=== PATIENT | male | born 1990 | race African-American/Black ===

== ENCOUNTER 2018-11-26 10:43 | Emergency (ER) | payer OTHER ==
[~2018-11-26] VITALS: Ht 185.4 cm; Wt 91.2 kg
[2018-11-26] MEDS ORDERED: VALA10005 PO (11:36)
--- NOTE | 2018-11-26 11:40 | PHYS DOC ---
Past History Past Medical History: No Pertinent History Past Surgical History: No Surgical History Alcohol Use: Occasionally Drug Use: None Adult General Chief Complaint Chief Complaint: OTHER COMPLAINTS HPI HPI 28-year-old male presents with rash on his upper lip. The patient just noticed this came up yesterday. He was concerned about this because he left his dog lick his face. He has not had the dog for very long. The rash seemed to pop up in the area with the dog licked him. She has not had a history of cold sores in the past. He denies fever or chills. Secondarily, the patient had a rash on his right flank that showed up around the same time the patient was exposed to a person with shingles. The patient's boss wanted him to come get checked out just in case. The rash on his side has resolved. He does not have any pain. The patient had chickenpox in the past and is fully vaccinated. Review of Systems Review of Systems Constitutional: Denies fever or chills [] Eyes: Denies change in visual acuity, redness, or eye pain [] HENT: Denies nasal congestion or sore throat [] Respiratory: Denies cough or shortness of breath [] Cardiovascular: No additional information not addressed in HPI [] GI: Denies abdominal pain, nausea, vomiting, bloody stools or diarrhea [] : Denies dysuria or hematuria [] Musculoskeletal: Denies back pain or joint pain [] Integument: Lip rash[] Neurologic: Denies headache, focal weakness or sensory changes [] Endocrine: Denies polyuria or polydipsia [] All other systems were reviewed and found to be within normal limits, except as documented in this note. Allergies Allergies Allergies Coded Allergies Type Severity Reaction Last Updated Verified No Known Drug Allergies 11/26/18 No Physical Exam Physical Exam Constitutional: Well developed, well nourished, no acute distress, non-toxic appearance. [] HENT: Normocephalic, atraumatic, bilateral external ears normal, oropharynx moist, no oral exudates, nose normal. [] Eyes: PERRLA, EOMI, conjunctiva normal, no discharge. [] Neck: Normal range of motion, no tenderness, supple, no stridor. [] Cardiovascular:Heart rate regular rhythm, no murmur [] Lungs & Thorax: Bilateral breath sounds clear to auscultation [] Abdomen: Bowel sounds normal, soft, no tenderness, no masses, no pulsatile masses. [] Skin: 5mm vesicular rash on right upper lip, consistent with HSV 1. [] Back: No tenderness, no CVA tenderness. [] Extremities: No tenderness, no cyanosis, no clubbing, ROM intact, no edema. [] Neurologic: Alert and oriented X 3, normal motor function, normal sensory function, no focal deficits noted. [] Psychologic: Affect normal, judgement normal, mood normal. [] Current Patient Data Vital Signs Vital Signs Date Time Temp Pulse Resp B/P (MAP) Pulse Ox O2 Delivery O2 Flow Rate FiO2 11/26/18 10:45 98.3 64 18 98 Room Air EKG EKG [] Radiology/Procedures Radiology/Procedures [] Course & Med Decision Making Course & Med Decision Making Pertinent Labs and Imaging studies reviewed. (See chart for details) Believe the patient likely has herpes simplex outbreak and I will treat him with Valtrex. It is also possible that he is allergic to the dog saliva. I told him the only way to find out for sure is to have allergy testing. He is stable for discharge at this time. [] Dragon Disclaimer Dragon Disclaimer This electronic medical record was generated, in whole or in part, using a voice recognition dictation system. Departure Departure: Impression: Primary Impression: Herpes simplex Disposition: 01 HOME, SELF-CARE Condition: STABLE Referrals: PCP,NO (PCP) Patient Instructions: Cold Sore, [id number] Scripts Valacyclovir Hcl (VALTREX) 1,000 Mg Tablet 2 TAB PO BID PRN for RASH for 1 Day, #20 TAB Take 2 tabs now and 2 tabs in 12 hours. Prov: MISTY KING DO 11/26/18 MISTY KING DO Nov 26, 2018 11:40
[2018-11-26 11:45] VITALS: BP 104/72
== END 2018-11-26 11:45 | disposition home or self-care (01) ==
LOC: ER 10:43
DX: B00.9 Herpesviral infection, unspecified (principal)
CPT/HCPCS: 99283

== ENCOUNTER 2018-12-27 21:05 | Emergency (ER) | payer OTHER ==
[~2018-12-27] VITALS: Ht 185.4 cm; Wt 91.2 kg
[~2018-12-27 21:05] MED LIST: VALA10005 PO
[2018-12-27 21:12] VITALS: BP 143/84
[2018-12-27] MEDS ORDERED: DICL50TA4 PO (22:15)
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
--- NOTE | 2018-12-27 23:41 | RAD ---
Three-view left knee radiographs 12/27/2018 CLINICAL HISTORY: Injury to the left knee. AP, oblique and 2 lateral digital radiographs of the left knee were obtained. No fracture or dislocation of the left knee is seen. Mild enthesophyte formation is seen involving the superior aspect of the anterior left patella. IMPRESSION: No fracture or dislocation of the left knee is seen. Electronically signed by: Peter Maldonado MD (12/27/2018 11:37 PM) [facility]
== END 2018-12-27 22:35 | disposition home or self-care (01) ==
LOC: ER 21:09
DX: S80.02XA Contusion of left knee, initial encounter (principal); V18.4XXA Pedal cycle driver injured in noncollision transport accident in traffic accident, initial encounter; Y93.I9 Activity, other involving external motion; Y92.488 Other paved roadways as the place of occurrence of the external cause; Y99.8 Other external cause status
CPT/HCPCS: 29505; 73562; 99284

== ENCOUNTER 2019-03-10 18:57 | Emergency (ER) | payer OTHER ==
[~2019-03-10] VITALS: Ht 180.3 cm; Wt 90.7 kg
[~2019-03-10 18:57] MED LIST changes: +DICL50TA4 PO
[2019-03-10 19:00] VITALS: BP 123/60
[2019-03-10] MEDS ORDERED: SULF1TAB24 PO (19:22)
[2019-03-10] MEDS ORDERED: MELO7.5T29 PO (19:22)
--- NOTE | 2019-03-10 19:22 | PHYS DOC ---
Past History Past Medical History: No Pertinent History Past Surgical History: No Surgical History Alcohol Use: Occasionally Drug Use: None Adult General Chief Complaint Chief Complaint: SKIN PROBLEM HPI HPI Patient is a 28-year-old male presents with a lump on his scalp. Patient shaves his head. He has noticed the lump approximately 2 weeks ago and has been getting worse over time. He's had previous ones like this that have healed on their own. No recent travel. No trauma. No drainage. No fever. It is tender to touch. No home medicine has been taken. He has not been seen at sick all. His vaccinations are up-to-date. Symptoms are mild to moderate in intensity. [] Review of Systems Review of Systems Constitutional: Denies fever or chills [] Eyes: Denies change in visual acuity, redness, or eye pain [] HENT: Denies nasal congestion or sore throat [] Respiratory: Denies cough or shortness of breath [] Cardiovascular: No chest pain or palpitations[] GI: Denies abdominal pain, nausea, vomiting, bloody stools or diarrhea [] : Denies dysuria or hematuria [] Musculoskeletal: Denies back pain or joint pain [] Integument: Denies rash, see history of present illness[] Neurologic: Denies headache, focal weakness or sensory changes [] Endocrine: Denies polyuria or polydipsia [] All other systems were reviewed and found to be within normal limits, except as documented in this note. Allergies Allergies Allergies Coded Allergies Type Severity Reaction Last Updated Verified No Known Drug Allergies 11/26/18 No Physical Exam Physical Exam Constitutional: Well developed, well nourished, no acute distress, non-toxic appearance. [] HENT: Normocephalic, atraumatic, bilateral external ears normal, oropharynx moist, no oral exudates, nose normal. [] Eyes: PERRLA, EOMI, conjunctiva normal, no discharge. [] Neck: Normal range of motion, no tenderness, supple, no stridor. [] Cardiovascular:Heart rate regular rhythm, no murmur [] Lungs & Thorax: Bilateral breath sounds clear to auscultation [] Abdomen: Not examined. [] Skin: Warm, dry, 1.5 cm diameter nodule right temporal parietal region. Fluctuant nature. Minimal erythema. No drainage. No cervical lymphadenopathy present.[] Back: No tenderness, no CVA tenderness. [] Extremities: No tenderness, no cyanosis, no clubbing, ROM intact, no edema. [] Neurologic: Alert and oriented X 3, normal motor function, normal sensory function, no focal deficits noted. [] Psychologic: Affect normal, judgement normal, mood normal. [] Current Patient Data Vital Signs Vital Signs Date Time Temp Pulse Resp B/P (MAP) Pulse Ox O2 Delivery O2 Flow Rate FiO2 03/10/19 19:00 98.1 71 20 97 Room Air EKG EKG [] Radiology/Procedures Radiology/Procedures [] Course & Med Decision Making Course & Med Decision Making Pertinent Labs and Imaging studies reviewed. (See chart for details) Medical decision making: This appears to be cutaneous abscess. Will start patient on oral outpatient antibiotics and have him follow-up with sick call. No evidence of systemic toxicity. No staph scalded skin syndrome, no toxic epidermal necrolysis, no Orta-Seb syndrome.[] Dragon Disclaimer Dragon Disclaimer This electronic medical record was generated, in whole or in part, using a voice recognition dictation system. Departure Departure: Impression: Primary Impression: Cutaneous abscess of head [any part, except face] Disposition: HOME, SELF-CARE Condition: IMPROVED Referrals: PCP,NO (PCP) Patient Instructions: Abscess Additional Instructions: Keep the area clean and dry. No shaving the scalp for 2 weeks. Follow-up with your regular doctor/sick call in 2 days for a wound check. Take the anabiotic's as prescribed. Return to the ER if worsening pain, fever of more than 101�, or any other concerns. Scripts Meloxicam (MELOXICAM) 7.5 Mg Tablet 7.5 MG PO DAILY for PAIN, #20 TAB Prov: MARCELINA HULL DO 03/10/19 Sulfamethoxazole/Trimethoprim (BACTRIM DS TABLET) 1 Each Tablet 2 TAB PO BID for cutaneous abscess, #40 TAB Prov: MARCELINA HULL DO 03/10/19 Incision and Drainage Indication: Right scalp nodule Procedure: The patient was positioned appropriately and the skin over the incision site was prepped with ChloraPrep. A needle aspiration was then made over the nodule and small amount of purulent material was expressed. The patient�s tetanus status confirmed. The patient tolerated the procedure well Complications: None MARCELINA HULL DO Mar 10, 2019 19:22
== END 2019-03-10 19:24 | disposition home or self-care (01) ==
LOC: ER 18:57
DX: L02.811 Cutaneous abscess of head [any part, except face] (principal)
CPT/HCPCS: 10160; 99284